=== PATIENT | female | born 1955 | race Asian ===

== ENCOUNTER 2017-06-01 13:09 | Emergency (ER) | payer MEDICAID ==
--- NOTE | 2017-06-01 13:23 | ED Physician Chart ---
Chief Complaint/HPI - Patient Information Date Seen:: 06/01/17 Time Seen:: 13:15 Chief Complaint:: Headache for 3 days. History of Present Illness:: Brought in by private auto because of headache for 3 days. Headache is characterized as bifrontal, bandlike, extending to back of scalp. Pt had transient N/V with vomitus consists of gastric content 2 days ago. No hematemesis. No fever. No weakness or numbness. No ataxia. No visual changes in terms of blurry vision or diplopia. No mentation change. Last analgesic use with Motrin 400 mg at about 0700 today with temporary improvement of her headache. Pt has h/o headache in the past and was diagnosed to have "migraine" and has been followed with PCP Dr. Shaw. Allergies:: Allergies Allergy/AdvReac Type Severity Reaction Status Date / Time No Known Allergies Allergy Verified 06/01/17 13:15 Vitals:: see Nurse Note. Historian:: Patient Family MD/PCP:: Dr. Shaw LMP:: Postmenopausal Review:: Nurse's Note Reviewed Review of Systems - Review of Systems General/Constitutional: No fever, No chills, No weight loss, No weakness, No edema, No loss of appetite Skin: No skin lesions, No rash, No bruising Head: Headache, No light-headedness Eyes: No loss of vision, No pain, No diplopia ENT: No earache, No nasal drainage, No sore throat, No tinnitus Neck: No neck pain, No swelling, No thyromegaly, No stiffness, No mass noted Cardio Vascular: No chest pain, No palpitations, No edema Pulmonary: No SOB, No cough GI: Nausea (transient ), Vomiting (transient, 2 days ago.), No pain, No hematemesis G/U: No dysuria, No frequency, No hematuria Musculoskeletal: No bone or joint pain, No back pain, No muscle pain Endocrine: No polyuria, No polydipsia Psychiatric: No prior psych history Hematopoietic: No bruising, No lymphadenopathy Allergic/Immuno: No urticaria, No angioedema Neurological: No syncope, No focal symptoms, No weakness, No paresthesia, Headache, No seizure, No dizziness, No confusion, No vertigo Past Medical History - Past Medical History Past Medical History: No significant medical hx (except recurrent "migraine" headache.) Family History: Heart disease (mother), HTN (mother) Social History: Non Smoker, No Alcohol, No Drug Use, , Other (lives with her .) Employment:: Retired. Surgical History: (at age 38.) Psychiatricy History: None Medication: Reviewed Family Medical History - Family Member Mother History Unknown: Yes Physical Exam - Physical Examination General/Constitutional: Awake, Well-developed, well-nourished, Alert, No distress, GCS 15, Non-toxic appearing, Ambulatory Other Gen/Cons comments:: Breathes comfortably, speaks clearly, and interacts normally. Pt appears to be in distress due to severe headache. Head: Atraumatic Eyes: Lids, conjuctiva normal, PERRL, EOMI Other Eyes comments:: Fundi: flat disks bilaterally. Skin: Nl inspection, No rash, No skin lesions, No ecchymosis, Well hydrated, No lymphadenopathy ENMT: External ears, nose nl, TM canals nl, Nasal exam nl, Oropharynx nl Neck: Nontender, Full ROM w/o pain, No JVD, No nuchal rigidity, No mass, No stridor Respiratory: Nl effort/Exclusion, Clear to Auscultation, No Wheeze/Rhonchi/Rales Cardio Vascular: RRR, No murmur, gallop, rubs GI: No tenderness/rebounding/guarding, No organomegaly, Normal BS's, Nondistended Other GI comments:: Abdomen is soft. Extremities: No tenderness or effusion, Full ROM, normal strength in all extremities, No edema, Normal digits & nails Neuro/Psych: Alert/oriented (oriented x 3), DTR's symmetric, Normal sensory exam , Normal motor strength, Judgement/insight normal, Mood normal, Normal gait, No focal deficits Other Neuro/Psych comments:: CN II to XII are grossly intact. Cerebellar exam (F to N, BEN): normal. Labs/Radiology/EKG Results - Lab Results Results: Laboratory Tests 06/01/17 06/01/17 06/01/17 13:36 13:36 13:36 WBC 9.2 RBC 4.80 Hgb 14.5 Hct 43.2 MCV 90.0 MCH 30.2 MCHC Differential 33.5 RDW 12.4 Plt Count 254 MPV 8.3 Neutrophils % 64.2 Lymphocytes % 28.5 Monocytes % 4.4 Eosinophils % 2.6 Basophils % 0.3 PT 9.4 L INR 0.90 PTT (Actin FS) 26.1 Sodium 137 Potassium 3.5 Chloride 106 Carbon Dioxide 24.0 Anion Gap 10.5 BUN 10 Creatinine 0.8 Est GFR ( Amer) > 60.0 Est GFR (Non-Af Amer) > 60.0 BUN/Creatinine Ratio 12.5 Glucose 129 H Calcium 9.7 - Radiology Results Results: Head CT without contrast: NAD. Official report per Dr. Malcom Pacheco, radiologist. ED Septic Shock - . Is Septic Shock (SBP<90, OR Lactate>4 mmol\\L) present?: No Reassessment (Disposition) - Reassessment Reassessment:: 0200 Pt remains stable. KHAN has subsided. No new complaint or findings. 0305 Pt appears to be comfortable. CT report just became available. Lab and CT findings have been reviewed with pt. Management plan has been discussed. 0540 Pt now feels well without headache. Pt has been taking oral fluid well without N/V/D. Pt requests to go home now and does not want further observation/ management in hospital. Aftercare instructions have been given. Her daughter Raven will drive pt home. Reassessment Condition:: Improved - Diagnosis Diagnosis:: Tension headache, stable and improved. - Aftercare/Follow up Instructions Aftercare/Follow-Up Instructions:: Refer to Discharge Instructions Notes:: Bedrest today. Clear liquid diet for now. May take Tylenol 500 mg tab one tab po q6h prn pain. Drowsiness precautions given with the use of Dilaudid. Headache instructions given. Avoid neck bending or straining activities. F/U with PCP Dr. Shaw in one day for recheck with repeat lab study: BMP. Return to ER immediately if conditon worsens or if any further questions/ problems. Medication Prescribed:: None - Patient Disposition Discharge/Transfer:: Home Time:: 17:48 Condition at Disposition:: Stable, Improved ED Discharge Plan - Patient Disposition Instructions: Tension Headache, [id number] Accepting Physician: Epifanio Shaw [Primary Care Provider] - 1-3 Days
[2017-06-01] MEDS ORDERED: HYDROmorphone 1 mg/mL 1mL Syr IVP STA (13:29)
[2017-06-01] MEDS ORDERED: HYDROmorphone 1 mg/mL 1mL Syr ONE (13:32)
[2017-06-01 13:45] LABS: % BASOPHILS 0.3 % (0.0-2.0); % EOSINOPHILS 2.6 % (0.0-5.0); % LYMPHOCYTES 28.5 % (20.0-50.0); % MONOCYTES 4.4 % (2.0-10.0); % NEUTROPHILS 64.2 % (40.0-80.0); HEMATOCRIT 43.2 % (35.0-45.0); HEMOGLOBIN 14.5 gm/dL (11.7-15.5); MEAN CORPUSCULAR HEMOGLOBIN 30.2 pg (27.0-31.0); MEAN CORPUSCULAR HGB CONC 33.5 pg (28.0-36.0); MEAN PLATELET VOLUME 8.3 fl; PLATELET COUNT 254 Th/cmm (150-400); RED CELL DISTRIBUTION WIDTH 12.4 % (11.5-20.0); WHITE BLOOD COUNT 9.2 Th/cmm (4.8-10.8)
[2017-06-01 13:59] LABS: INR 0.9 (0.5-1.4); PROTHROMBIN TIME (TEST) 9.4 SECONDS (9.5-11.5)
[2017-06-01 14:00] LABS: ANION GAP 10.5 (7.0-16.0); BUN - UREA NITROGEN 10 mg/dL (7-25); BUN/CREATININE RATIO 12.5; CALCIUM SERUM 9.7 mg/dL (8.6-10.3); CHLORIDE 106 mEq/L (98-107); CREATININE - SERUM 0.8 mg/dL (0.6-1.2); GLUCOSE 129 mg/dL (70-105); POTASSIUM SERUM 3.5 mEq/L (3.5-5.1); SODIUM SERUM 137 mEq/L (136-145)
[2017-06-01 14:16] VITALS: BP 134/95
[2017-06-01] MEDS ORDERED: Sodium Chloride 0.9% 1,000 ML IV ONE (16:35)
[2017-06-01] MEDS ORDERED: Metoclopramide 5 mg/mL 2mL Vial IVP STA (16:49)
[2017-06-01] MEDS ORDERED: Metoclopramide 5 mg/mL 2mL Vial ONE (16:52)
--- NOTE | 2017-06-02 11:53 | Diagnostic Imaging Report ---
CT scan of the brain without contrast History: Headache Total DLP equals 616 CTDI equals 34.1 Axial sections were obtained from the base of the skull to the vertex. There is a normal ventricular system size. There is a cavum septum lucidum No focal parenchymal lesions are seen. No evidence of any mass effect or shift of midline structures. No extra-axial masses or abnormal fluid collections. Impression: No acute abnormalities
== END 2017-06-01 17:45 | disposition home or self-care (01) ==
LOC: ER 13:09
DX: G44.209 Tension-type headache, unspecified, not intractable (principal); R11.2 Nausea with vomiting, unspecified
CPT/HCPCS: 99285; 96361; 96374; 96375; 70450; 36415; 86803; 86703; 85025; 85610; 87340; 80048; J2405; J2765; J1170; J7030